=== PATIENT | male | born 1960 | race African-American/Black ===

== ENCOUNTER → 2016-10-23 | Outpatient (CLI) | payer OTHER ==
[~2016-10-23] MED LIST: DILANTIN; DOXYCYCLINE HY100 M3 PO; FLEXERIL PO; KETOPROFEN PO
--- NOTE | ~2016-10-23 | CR181 ---
[facility] A Service of [facility] & [facility] RADIOLOGY TEXT RESULTS PATIENT: ALTAGRACIA LONDON LOCATION: [facility] : 60 UNIT #: [id number] AGE: [address]: Moncho Arevalo MD SEX: M ORDER DR: [id number] [facility] [address] [place], [place] [address] [id number] MR#: [id number] Acc #: [id number] NAME: ALTAGRACIA LONDON : 1960 SEX: M STUDY DATE/TIME: UNIT: [facility] ROOM: STUDY DESCRIPTION: CR Lumbar Spine 2 or 3 Views Attending Physician: Escobar Arevalo M.D. Referring Physician: Escobar Arevalo M.D. Ordering Physician: Escobar Arevalo M.D. Primary Care Physician: Primary Care Physician No MEDICAL IMAGING REPORT This report is preliminary unless electronic signature is present EXAM Lumbar spine 10/23/2016 0954 hours HISTORY Patient complains of low back pain since 2012 with episodes of legs giving out. COMPARISON 09/09/2015 FINDINGS AP and lateral views of the lumbar spine and a cone lateral view of the lumbosacral junction were performed. There is no lumbar fracture. There is mild disc height loss at L4-L5 unchanged. There is significant disc height loss, endplate sclerosis and osteophytes at L5-S1 similar to prior study. There is suggested facet arthropathy at L5-S1 as well. Canal stenosis cannot be excluded. There is advanced degenerative change at T10-11 greater than T11-12 similar to prior study. IMPRESSION 1. Advanced degenerative change L5-S1 with disc height loss, endplate spurring and sclerosis. There is suggested facet arthropathy at this level as well. Central canal stenosis cannot be excluded. Consider followup MRI given the radicular symptoms in the legs. 2. No fracture. 3. Degenerative changes in the lower thoracic spine are similar to 09/09/2015. Dictated by... Erin Valderrama M.D. THIS IS AN ELECTRONICALLY VERIFIED REPORT Erin Valderrama M.D. at 10/23/2016 2:28 PM [facility] A Service of [facility] & [facility] RADIOLOGY TEXT RESULTS PATIENT: ALTAGRACIA LONDON LOCATION: [facility] #: [id number] : 60 UNIT #: [id number] AGE: [address]: Moncho Arevalo MD SEX: M ORDER DR: CIARA/lili TD: 10/23/2016 12:18 JOB #: [id number] MEDICAL IMAGING REPORT Page 1 of 1 COPY
== END | disposition home or self-care (01) ==
LOC: CRAD 09:32
DX: M54.5 Low back pain (principal); M47.897 Other spondylosis, lumbosacral region; M46.06 Spinal enthesopathy, lumbar region; G95.89 Other specified diseases of spinal cord; M47.894 Other spondylosis, thoracic region
CPT/HCPCS: 72100